=== PATIENT | female | born 1975 | race Caucasian/White ===

== ENCOUNTER 2019-01-14 20:18 | Emergency (ER) | payer OTHER ==
[~2019-01-14] VITALS: Ht 157.5 cm; Wt 104.3 kg
[2019-01-14 20:44] VITALS: BP 151/114
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
[2019-01-14] MEDS ORDERED: HYDR-3165 PO (22:28)
[2019-01-14] MEDS ORDERED: HYDROcodone/APAP 5/325MG 1 TAB TABLET PO ONE (23:00)
[2019-01-14] MEDS ORDERED: NAPROXEN 500 MG TABLET PO ONE (23:00)
== END 2019-01-14 22:38 | disposition home or self-care (01) ==
LOC: ER 20:18
DX: S13.4XXA Sprain of ligaments of cervical spine, initial encounter (principal); M54.6 Pain in thoracic spine; E03.9 Hypothyroidism, unspecified; V40.6XXA Car passenger injured in collision with pedestrian or animal in traffic accident, initial encounter; Y93.89 Activity, other specified; Y92.488 Other paved roadways as the place of occurrence of the external cause; Y99.8 Other external cause status
CPT/HCPCS: 72040; 99284

== ENCOUNTER 2019-01-30 19:55 | Emergency (ER) | payer OTHER ==
[~2019-01-30] VITALS: Ht 157.5 cm; Wt 104.3 kg
[~2019-01-30 19:55] MED LIST: HYDR-3165 PO
[2019-01-30] MEDS ORDERED: IV NORMAL SALINE 1,000ML 1,000 ML IV SCH (20:14)
[2019-01-30] MEDS ORDERED: IV RINGERS SOLUTION,LACTATED 1,000 ML IV SCH (20:14)
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
[2019-01-30] MEDS ORDERED: ONDANSETRON PF 4 MG/2 ML VIAL. IV ONE (20:15)
[2019-01-30] MEDS ORDERED: FAMOTIDINE 20 MG/2 ML VIAL IVP ONE (20:15)
[2019-01-30] MEDS ORDERED: IOHEXOL 300 MG/ML 75 ML VIAL. IV ONE (20:30)
[2019-01-30] MEDS ORDERED: CONTRAST GIVEN MC PRN (20:30)
[2019-01-30] MEDS ORDERED: IOHEXOL 240 MG/ML 50ML VIAL. PO ONE (20:30)
--- NOTE | 2019-01-30 20:56 | EKG ---
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
[2019-01-30 21:12] LABS: BASO # 0.1 x10^3/uL (0.0-0.2); BASO % 1 % (0-3); EOS # 0.3 x10^3/uL (0.0-0.7); EOS % 4 % (0-3); HEMATOCRIT 39.3 % (36.0-47.0); HEMOGLOBIN 13.3 g/dL (12.0-15.5); LYMPH # 1.1 x10^3/uL (1.0-4.8); LYMPH % 15 % (24-48); MEAN CORPUSCULAR HEMOGLOBIN 32 pg (25-35); MEAN CORPUSCULAR HGB CONC 34 g/dL (31-37); MEAN CORPUSCULAR VOLUME 93 fL (79-100); MONO # 0.4 x10^3/uL (0.0-1.1); MONO % 5 % (0-9); NEUT # 5.3 x10^3uL (1.8-7.7); NEUT % 75 % (31-73); PLATELET COUNT 165 x10^3/uL (140-400); RED BLOOD COUNT 4.23 x10^6/uL (3.50-5.40); RED CELL DISTRIBUTION WIDTH 13.9 % (11.5-14.5); WHITE BLOOD COUNT 7.1 x10^3/uL (4.0-11.0)
[2019-01-30 21:28] LABS: ALBUMIN 3.4 g/dL (3.4-5.0); CALCIUM 9.2 mg/dL (8.5-10.1); CREATININE 1.2 mg/dL (0.6-1.0); DIRECT BILIRUBIN 0.1 mg/dL (0.0-0.2); POTASSIUM 3.8 mmol/L (3.5-5.1); TOTAL BILIRUBIN 0.3 mg/dL (0.2-1.0); TOTAL PROTEIN 6.6 g/dL (6.4-8.2)
[2019-01-30] MEDS ORDERED: MORPHINE SULFATE 10 MG/ML SYRINGE. SQ ONE (21:30)
[2019-01-30] MEDS ORDERED: ORPHENADRINE CITRATE 60 MG/2 ML VIAL. IV ONE (22:45)
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
[2019-01-30] MEDS ORDERED: IV RINGERS SOLUTION,LACTATED 1,000 ML IV ONE (23:30)
[2019-01-31] MEDS ORDERED: SODIUM BICARB ADULT 8.4% 50 MEQ/50 ML DISP.SYRIN. IV ONE (00:30)
[2019-01-31] MEDS ORDERED: methylPREDNISolone ACETATE 40 MG/ML VIAL. IM ONE (00:30)
[2019-01-31] MEDS ORDERED: SODIUM BICARBONATE IVF 50 MEQ in IV DEXTROSE 5% 1,000 ML IV ONE (00:30)
[2019-01-31 00:32] LABS: BACTERIA,URINE FEW /HPF (0-FEW); BILIRUBIN,URINE NEG (NEG); CLARITY,URINE CLEAR; COLOR,URINE YELLOW; GLUCOSE,URINE NEG (NEG); NITRITE,URINE NEG (NEG); RBC,URINE OCC /HPF (0-2); SQUAMOUS EPITHELIAL CELL,UR MANY /LPF; UROBILINOGEN,URINE 0.2 mg/dL (0.2 mg/dL); WBC,URINE OCC /HPF (0-4)
[2019-01-31 00:34] LABS: BARBITURATES NEG (NEG); BENZODIAZEPINES NEG (NEG); CANNABINOIDS NEG (NEG); COCAINE NEG (NEG); METHADONE NEG (NEG); OPIATES POS (NEG); PHENCYCLIDINE NEG (NEG)
[2019-01-31 00:35] LABS: AMPHETAMINE/METHAMPHETAMINE NEG (NEG)
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
[2019-01-31 01:20] VITALS: BP 147/102
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
[2019-02-02 15:23] LABS: ALBUM 3.5 g/dL (2.9-4.4); ALPHA 1 0.3 g/dL (0.0-0.4); ALPHA 2 0.7 g/dL (0.4-1.0); BETA 0.9 g/dL (0.7-1.3); GAMMA 0.6 g/dL (0.4-1.8); PROTEIN TOTAL 6.1 g/dL (6.0-8.5); SPEP AG RATIO 1.3 (0.7-1.7)
== END 2019-01-31 01:45 | disposition short-term general hospital (02) ==
LOC: ER 19:55
DX: S32.028A Other fracture of second lumbar vertebra, initial encounter for closed fracture (principal); S32.038A Other fracture of third lumbar vertebra, initial encounter for closed fracture; K92.2 Gastrointestinal hemorrhage, unspecified; R11.2 Nausea with vomiting, unspecified; R79.89 Other specified abnormal findings of blood chemistry; R74.8 Abnormal levels of other serum enzymes; R93.7 Abnormal findings on diagnostic imaging of other parts of musculoskeletal system; E03.9 Hypothyroidism, unspecified; Z90.49 Acquired absence of other specified parts of digestive tract; V40.6XXA Car passenger injured in collision with pedestrian or animal in traffic accident, initial encounter; Y93.89 Activity, other specified; Y92.488 Other paved roadways as the place of occurrence of the external cause; Y99.8 Other external cause status
CPT/HCPCS: 36415; 72131; 74022; 74177; 80048; 80076; 80307; 81001; 82550; 83690; 84165; 84484; 84702; 85025; 85730; 86850; 86900; 86901; 93005; 96361; 96365; 96372; 96375; 96376; 99285; J1030; J2270; J2360; J2405; J3490; J7120; Q9966; Q9967; J7030

== ENCOUNTER → 2019-03-01 | Outpatient (CLI) | payer OTHER ==
[2019-01-31 01:20] VITALS: BP 147/102
[~2019-03-01] MED LIST changes: +IOHEXOL 300 MG/ML 75 ML VIAL. IV ONE
--- NOTE | 2019-03-01 12:00 | RAD ---
Examination: CT chest with IV contrast HISTORY: History of chest pain, back pain COMPARISON: None available TECHNIQUE: Axial CT images of chest were performed with IV contrast. Coronal and sagittal reformats are performed Exposure: One or more of the following individualized dose reduction techniques were utilized for this examination: 1. Automated exposure control 2. Adjustment of the mA and/or kV according to patient size 3. Use of iterative reconstruction technique Findings : The visualized thyroid gland grossly appears unremarkable. The heart size grossly appears unremarkable. Small bibasilar lung consolidation changes likely pneumonia or atelectasis with small bilateral pleural effusions. Large subpectoral and right axillary lymph nodes identified with the largest measuring 5.3 cm in the right axilla The liver demonstrates small hypodensity in the left lobe measuring 1 cm. The spleen, adrenals grossly appears unremarkable. Multiple lytic lesions identified in the visualized thoracolumbar spine with compression changes of C7, T4 T6, T7 vertebral levels. There are multiple lytic lesions identified in the sternum with cortical disruption in the mid stomach. There are lytic lesions identified in the medial bilateral clavicles. There are lytic lesions identified in the right sixth, eighth ribs. Probable old fracture or lytic lesion of the left anterior fifth rib. 2 small nodules identified in the right breast. IMPRESSION: 1. Numerous lytic lesions could be metastasis or myeloma identified with compression fractures of C7 ,T4 T6, T7 vertebrae. There are multiple lytic lesions identified in the sternum the cortical disruption of the mid sternum. MRI of the thoracic spine is recommended to evaluate the spinal canal. 2. Large right axillary and subpectoral lymph nodes likely metastasis. 3. 2 small nodules identified in the right breast. Recommend mammographic evaluation. 4. Small bibasilar lung consolidations with likely atelectasis or pneumonia with small bilateral pleural effusions. 5. 1 cm hypodensity identified in the left lobe of the liver, difficult to characterize. Electronically signed by: Duke Rodrigez MD (03/01/2019 11:57 AM) [id number]
== END | disposition home or self-care (01) ==
LOC: CT 09:24
PROVIDERS: ATTEND Internal Medicine Hematology & Oncology
DX: C50.919 Malignant neoplasm of unspecified site of unspecified female breast (principal); M53.85 Other specified dorsopathies, thoracolumbar region; M53.83 Other specified dorsopathies, cervicothoracic region; N63.10 Unspecified lump in the right breast, unspecified quadrant
CPT/HCPCS: 71260; Q9967

== ENCOUNTER 2019-03-07 20:52 | Emergency (ER) | payer OTHER ==
[~2019-03-07] VITALS: Ht 157.5 cm; Wt 98.7 kg
[~2019-03-07 20:52] MED LIST changes: -IOHEXOL 300 MG/ML 75 ML VIAL. IV ONE
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
[2019-03-07] MEDS ORDERED: methylPREDNISolone SOD SUCC PF 125 MG/2 ML VIAL. IV ONE (21:30)
[2019-03-07] MEDS ORDERED: MORPHINE SULFATE 4 MG/ML DISP.SYRIN. IV ONE (21:30)
[2019-03-07] MEDS: IV RINGERS SOLUTION,LACTATED 1,000 ML IV SCH (21:40)
[2019-03-07 22:02] LABS: BASO # 0.1 x10^3/uL (0.0-0.2); BASO % 2 % (0-3); EOS # 0.2 x10^3/uL (0.0-0.7); EOS % 8 % (0-3); HEMATOCRIT 35.7 % (36.0-47.0); HEMOGLOBIN 12.5 g/dL (12.0-15.5); LYMPH # 0.3 x10^3/uL (1.0-4.8); LYMPH % 13 % (24-48); MEAN CORPUSCULAR HEMOGLOBIN 31 pg (25-35); MEAN CORPUSCULAR HGB CONC 35 g/dL (31-37); MEAN CORPUSCULAR VOLUME 90 fL (79-100); MONO # 0.2 x10^3/uL (0.0-1.1); MONO % 7 % (0-9); NEUT # 1.7 x10^3uL (1.8-7.7); NEUT % 70 % (31-73); PLATELET COUNT 122 x10^3/uL (140-400); RED BLOOD COUNT 3.97 x10^6/uL (3.50-5.40); WHITE BLOOD COUNT 2.5 x10^3/uL (4.0-11.0)
[2019-03-07 22:22] LABS: ALBUMIN 3.4 g/dL (3.4-5.0); CREATININE 1.9 mg/dL (0.6-1.0); DIRECT BILIRUBIN 0.1 mg/dL (0.0-0.2); GFR 28.9; MAGNESIUM 1.5 mg/dL (1.8-2.4); POTASSIUM 3.3 mmol/L (3.5-5.1); TOTAL BILIRUBIN 0.4 mg/dL (0.2-1.0); TOTAL PROTEIN 6.4 g/dL (6.4-8.2)
[2019-03-07 23:09] LABS: SEDIMENTATION RATE 69 (0-25)
--- NOTE | 2019-03-07 23:16 | EKG ---
[address] [address] Test Date: 2019-03-07 Test Time: 22:27:12 Pat Name: RON CONNELLY Department: Room: Gender: F Registered Nurse Post Partum: : 1975 Requested By: CARLOS MARRERO Order Number: [id number] Reading MD: Measurements Intervals [place] Rate: 93 P: 52 AK: 146 QRS: 11 QRSD: 76 T: 5 QT: 336 QTc: 420 Interpretive Statements SINUS RHYTHM T ABNORMALITY IN ANTEROSEPTAL LEADS ABNORMAL ECG RI6.01 No previous ECG available for comparison
[2019-03-07] MEDS ORDERED: IV RINGERS SOLUTION,LACTATED 1,000 ML IV ONE (23:30)
[2019-03-07] MEDS ORDERED: ENOXAPARIN ** NOTE DOSE ** SYRINGE SQ ONE (23:45)
[2019-03-07] MEDS ORDERED: MAGNESIUM SULFATE 2GM 50 ML IV ONE (23:45)
[2019-03-07] MEDS ORDERED: SODIUM BICARB ADULT 8.4% 50 MEQ/50 ML DISP.SYRIN. IV ONE (23:45)
--- NOTE | 2019-03-07 23:47 | RAD ---
AP pelvis radiograph 03/07/2019 CLINICAL HISTORY: Left hip pain. History of metastatic breast cancer. AP digital radiograph of pelvis was obtained. Comparison is made to a CT scan abdomen and pelvis dated 10/16/2018. No pelvic bone fracture is seen. Both hips are intact. Ill-defined lucencies are seen involving the pelvic bones and the proximal femurs which correspond to lytic lesion seen on the patient's recent CT scan and are consistent with metastasis. A moderate amount of stool is seen throughout the visualized portions of the colon. IMPRESSION: Lytic metastasis are seen involving the pelvis and proximal femurs. No fracture or dislocation is seen. Electronically signed by: Darian Guerrier MD (03/07/2019 11:44 PM) [facility]
--- NOTE | 2019-03-07 23:50 | RAD ---
AP portable chest radiograph 03/07/2019 Clinical History: Metastatic breast cancer. An AP erect portable digital radiograph of the chest was obtained. Comparison is made to the patient's CT scan of the chest dated 03/01/2019 The cardiac silhouette is borderline enlarged. The thoracic aorta is mildly tortuous. No acute pulmonary infiltrate is seen. No pleural effusion or pneumothorax is noted. The osseous structures are unchanged. IMPRESSION: No acute pulmonary infiltrate is seen. Electronically signed by: Darian Guerrier MD (03/07/2019 11:47 PM) [facility]
[2019-03-08] MEDS: IV RINGERS SOLUTION,LACTATED 1,000 ML IV SCH (00:23)
[2019-03-08 00:30] LABS: BACTERIA,URINE 0 /HPF (0-FEW); BILIRUBIN,URINE NEG (NEG); CLARITY,URINE CLEAR; COLOR,URINE YELLOW; GLUCOSE,URINE NEG (NEG); NITRITE,URINE NEG (NEG); RBC,URINE 0 /HPF (0-2); UROBILINOGEN,URINE 0.2 mg/dL (0.2 mg/dL); WBC,URINE OCC /HPF (0-4)
[2019-03-08 00:31] LABS: SQUAMOUS EPITHELIAL CELL,UR MOD /LPF
[2019-03-08 00:35] LABS: BARBITURATES NEG (NEG); BENZODIAZEPINES NEG (NEG); CANNABINOIDS NEG (NEG); COCAINE NEG (NEG); METHADONE NEG (NEG); OPIATES POS (NEG); PHENCYCLIDINE NEG (NEG)
[2019-03-08 00:40] LABS: AMPHETAMINE/METHAMPHETAMINE NEG (NEG)
[2019-03-08 00:45] VITALS: BP 119/76
== END 2019-03-08 01:11 | disposition short-term general hospital (02) ==
LOC: ER 20:52
DX: S32.029D Unspecified fracture of second lumbar vertebra, subsequent encounter for fracture with routine healing (principal); S32.039D Unspecified fracture of third lumbar vertebra, subsequent encounter for fracture with routine healing; C50.919 Malignant neoplasm of unspecified site of unspecified female breast; C79.51 Secondary malignant neoplasm of bone; N94.89 Other specified conditions associated with female genital organs and menstrual cycle; R70.0 Elevated erythrocyte sedimentation rate; R79.1 Abnormal coagulation profile; D72.819 Decreased white blood cell count, unspecified; D69.6 Thrombocytopenia, unspecified; E87.1 Hypo-osmolality and hyponatremia; E87.6 Hypokalemia; R97.0 Elevated carcinoembryonic antigen [CEA]; E83.42 Hypomagnesemia; R74.8 Abnormal levels of other serum enzymes; E03.9 Hypothyroidism, unspecified; Z90.49 Acquired absence of other specified parts of digestive tract; V40.9XXD Unspecified car occupant injured in collision with pedestrian or animal in traffic accident, subsequent encounter
CPT/HCPCS: 36415; 71045; 72170; 80048; 80076; 80307; 81001; 82550; 83690; 83735; 83880; 84443; 84484; 85025; 85379; 85610; 85651; 85730; 87040; 93005; 96365; 96372; 96375; 99285; J1650; J2270; J2930; J3475; J7120

== ENCOUNTER → 2019-12-02 | Outpatient (CLI) | payer OTHER ==
[~2019-12-02] MED LIST changes: +IOHEXOL 240 MG/ML 50ML VIAL. ONE; +IOHEXOL 240 MG/ML 50ML VIAL. PO ONE; +IOHEXOL 300 MG/ML 75 ML VIAL. IV ONE
--- NOTE | 2019-12-02 14:32 | RAD ---
EXAM: CT Chest, Abdomen, and Pelvis with IV contrast INDICATION: Reason: BREAST CA / Spl. Instructions: DRINKING 10:56-11:56 / History: TECHNIQUE: Multi-detector row CT images were acquired from the thoracic inlet through the ischial tuberosities with the use of IV contrast. Sagittal and coronal images were acquired from the transaxial data. All CT scans performed at this facility utilize dose optimization techniques as appropriate to the exam, including the following: Automated exposure control and adjustment of the mA and/or KV according to patient size (this includes techniques or standardized protocols for targeted exams where dose is indication/reason for exam). IV CONTRAST: Administered ORAL CONTRAST: Administered COMPARISON: CT chest with IV contrast of 03/01/[address] abdomen and pelvis without IV contrast of 01/30/2019. FINDINGS: CHEST: CARDIOVASCULAR: Unremarkable MEDIASTINUM & DEANA: No adenopathy or masses. LUNGS: Stable reticular nodular density in the medial superior right lung apex. No pulmonary infiltrate, nodule, or other focal abnormality. PLEURAL SPACE: No pleural effusions or pneumothorax. OSSEOUS & SOFT TISSUE: Extensive osteolytic lesions consistent with osseous metastasis are present with interval occurrence of healing pathologic fractures in the proximal sternal body and at T4, T6, and T7 with associated deformity. [place] of osteolysis in the bones has decreased markedly in the interval. Right axillary lymph nodes remain asymmetrically enlarged and show calcifications but have not changed in size in the interval. ABDOMEN/PELVIS: LIVER: Unremarkable BILIARY SYSTEM: Gallbladder surgically absent. Bile ducts are not dilated. PANCREAS: Unremarkable SPLEEN: Unremarkable ADRENALS: Unremarkable KIDNEYS & URETERS: Unremarkable BLADDER: Unremarkable REPRODUCTIVE ORGANS: Unremarkable GASTROINTESTINAL: Stool-filled large bowel. The Stomach, small bowel, and colon are otherwise unremarkable. The appendix is normal. MESENTERY/PERITONEUM/RETROPERITONEUM: Small amount of pelvic free fluid. No organized fluid collection, or free air VASCULAR: Unremarkable LYMPH NODES: No adenopathy OSSEOUS & SOFT TISSUES: Interval vertebroplasty at L3 with slight extravasation of vertebroplasty cement into the L3-L4 disc space. Mild anterior loss of height at L2, consistent with subtle pathologic wedge compression fracture. Numerous osteolytic lesions throughout the lumbar spine show interval development of sclerosis, compatible with a positive treatment response. There is 1 osteolytic lesion in the left iliac wing that shows interval cortical destruction with soft tissue extension protruding against the left gluteus minimus muscle, best illustrated on axial image 89 of series 5 this exam compared with image 60 of series 2 on the previous exam). Patient has a new left dynamic hip screw. IMPRESSION: Findings suggest overall positive treatment response with decrease in burden of extensive osteolytic metastatic disease but with one lesion in the left iliac wing showing a slightly more conspicuous soft tissue component. Attention on follow-up recommended. Otherwise stable posttreatment changes of the medial right lung apex and in the right axilla with no evidence of disease progression. Electronically signed by: Linda Roland MD (12/02/2019 2:29 PM) [id number]
== END | disposition home or self-care (01) ==
LOC: CT 10:45
PROVIDERS: ATTEND Internal Medicine Hematology & Oncology
DX: C50.919 Malignant neoplasm of unspecified site of unspecified female breast (principal); M89.58 Osteolysis, other site
CPT/HCPCS: 71260; 74177; Q9966; Q9967

== ENCOUNTER 2020-05-20 07:59 | Emergency (ER) | payer OTHER ==
[~2020-05-20] VITALS: Ht 157.5 cm; Wt 84.1 kg
[~2020-05-20 07:59] MED LIST changes: -IOHEXOL 240 MG/ML 50ML VIAL. ONE; -IOHEXOL 240 MG/ML 50ML VIAL. PO ONE; -IOHEXOL 300 MG/ML 75 ML VIAL. IV ONE
[2020-05-20] MEDS ORDERED: IV NORMAL SALINE 1,000ML 1,000 ML IV ONE (08:30)
[2020-05-20] MEDS ORDERED: ONDANSETRON PF 4 MG/2 ML VIAL. IVP ONE (08:30)
--- NOTE | 2020-05-20 08:42 | RAD ---
CHEST AP ONLY INDICATION: SOA. History breast cancer. COMPARISON STUDY: CT chest abdomen and pelvis 12/02/2019. FINDINGS: Lungs: Low lung volume. No pulmonary mass or consolidation. The tracheobronchial tree and hilar structures are normal. Pleura: No pleural effusion or pneumothorax. Heart and Mediastinum: The cardiomediastinal silhouette is normal. The great vessels of the thorax are normal. Bones and Soft Tissues: Osseous metastatic lesions are again seen. IMPRESSION: 1. No focal airspace disease. 2. Osseous metastases are again seen. Electronically signed by: Paulino Grewal MD (05/20/2020 8:39 AM) [id number]
[2020-05-20] MEDS ORDERED: MORPHINE SULFATE 4 MG/ML DISP.SYRIN. IV ONE (08:45)
--- NOTE | 2020-05-20 08:47 | PHYS DOC ---
Past History Past Medical History: Anxiety, Cancer, Depression, Hypothyroid Additional Past Medical Histor: breast cancer, ca-spine Past Surgical History: Cholecystectomy, Other Additional Past Surgical Histo: kyphoplasty-l3, radiation Alcohol Use: None Drug Use: None General Adult EDM: Chief Complaint: MULTIPLE COMPLAINTS HPI: HPI: Patient is a 44-year-old female with a history of stage IV breast cancer, under chemo therapy treatment with some investigation drugs presented to ER for nausea vomiting and feeling weak. Patient says she vomited blood last night. Patient denies taking any blood thinner. Patient said when she vomited blood last night she has some abdominal cramping. Patient also complained of trouble breathing. She denies any cough or fever. Patient stated patient is acting more confused Review of Systems: Review of Systems: Constitutional: Denies fever or chills Eyes: Denies change in visual acuity HENT: Denies nasal congestion or sore throat Respiratory: Positive for trouble breathing, no cough. Cardiovascular: Denies chest pain or edema GI: Positive for nausea vomiting abdominal pain, no diarrhea. : Denies dysuria Musculoskeletal: Denies back pain or joint pain Integument: Denies rash Neurologic: Denies headache, focal weakness or sensory changes Endocrine: Denies polyuria or polydipsia Lymphatic: Denies swollen glands Psychiatric: Denies depression or anxiety Current Medications: Current Meds: Current Medications Medications (Trade) Dose Ordered Sig/Alfredo Start Time Stop Time Status Last Admin Dose Admin Morphine Sulfate (Morphine 4mg Syringe) 4 mg 1X ONCE 05/20/20 08:45 05/20/20 08:46 UNV Ondansetron HCl (Zofran) 4 mg 1X ONCE 05/20/20 08:30 05/20/20 08:31 DC Sodium Chloride 1,000 ml @ 1,000 mls/hr 1X ONCE 05/20/20 08:30 05/20/20 09:29 Allergies: Allergies: Allergies Coded Allergies Type Severity Reaction Last Updated Verified No Known Drug Allergies 03/01/19 No Physical Exam: PE: Constitutional: Well developed, well nourished, no acute distress, non-toxic ap pearance. [] HENT: Normocephalic, atraumatic, bilateral external ears normal, oropharynx dry, no oral exudates, nose normal. [] Eyes: PERRLA, EOMI, conjunctiva normal, no discharge. [] Neck: Normal range of motion, no tenderness, supple, no stridor. [] Cardiovascular:Heart rate regular rhythm, no murmur [] Lungs & Thorax: Bilateral breath sounds clear to auscultation [] Abdomen: Bowel sounds normal, soft, right upper quadrant tenderness to palpation, hepatomegaly, no masses, no pulsatile masses. [] Skin: Warm, dry, no erythema, no rash. [] Back: No tenderness, no CVA tenderness. [] Extremities: No tenderness, no cyanosis, no clubbing, ROM intact, no edema. [] Neurologic: Alert and oriented X 3, normal motor function, normal sensory function, no focal deficits noted. [] Psychologic: Affect normal, judgement normal, mood normal. [] Current Patient Data: Labs: Laboratory Tests Test 05/20/20 08:11 05/20/20 08:36 Sodium Level 127 mmol/L Potassium Level 4.6 mmol/L Chloride Level 92 mmol/L Carbon Dioxide Level 14 mmol/L Anion Gap 21 Blood Urea Nitrogen 23 mg/dL Creatinine 2.1 mg/dL Estimated GFR (Cockcroft-Gault) 25.6 BUN/Creatinine Ratio 11 Glucose Level 121 mg/dL Calcium Level 8.3 mg/dL Magnesium Level 2.3 mg/dL Total Bilirubin 7.7 mg/dL Aspartate Amino Transf (AST/SGOT) 375 U/L Alanine Aminotransferase (ALT/SGPT) 57 U/L Alkaline Phosphatase 577 U/L Total Protein 5.6 g/dL Albumin 2.4 g/dL Albumin/Globulin Ratio 0.8 White Blood Count 10.2 x10^3/uL Red Blood Count 3.38 x10^6/uL Hemoglobin 11.6 g/dL Hematocrit 37.5 % Mean Corpuscular Volume 111 fL Mean Corpuscular Hemoglobin 35 pg Mean Corpuscular Hemoglobin Concent 31 g/dL Red Cell Distribution Width 18.8 % Platelet Count 65 x10^3/uL Neutrophils (%) (Auto) % Lymphocytes (%) (Auto) % Monocytes (%) (Auto) % Eosinophils (%) (Auto) % Basophils (%) (Auto) % Neutrophils # (Auto) x10^3uL Lymphocytes # (Auto) x10^3/uL Monocytes # (Auto) x10^3/uL Eosinophils # (Auto) x10^3/uL Basophils # (Auto) x10^3/uL Segmented Neutrophils % 62 % Band Neutrophils % 5 % Lymphocytes % 21 % Monocytes % 10 % Myelocytes % 2 % Nucleated Red Blood Cells 5 Platelet Estimate Decreased Polychromasia Slight Hypochromasia Macrocytosis Slight Prothrombin Time 17.7 SEC Prothromb Time International Ratio 1.7 Activated Partial Thromboplast Time 33 SEC Lactic Acid Level 4.8 mmol/L Ammonia 17 mcmol/L Lipase 61 U/L Current Medications Medications (Trade) Dose Ordered Sig/Alfredo Route PRN Reason Start Time Stop Time Status Last Admin Dose Admin Ondansetron HCl (Zofran) 4 mg 1X ONCE IVP 05/20/20 08:30 05/20/20 08:31 DC 05/20/20 08:43 Sodium Chloride 1,000 ml @ 1,000 mls/hr 1X ONCE IV 05/20/20 08:30 05/20/20 09:29 DC 05/20/20 08:43 Morphine Sulfate (Morphine 4mg Syringe) 4 mg 1X ONCE IV 05/20/20 08:45 05/20/20 08:51 DC 05/20/20 08:43 EKG: EKG: EKG was done at a 17, heart rate of 96 bpm, sinus rhythm, no ST segment elevation. Radiology/Procedures: Radiology/Procedures: [][address] [address] IMAGING REPORT Signed PATIENT: RON CONNELLY ACCOUNT: [id number] : 1975 LOCATION: ER AGE: 44 SEX: F EXAM STATUS: REG ER ORD. PHYSICIAN: RAMBO TAN DO REASON: SOA PROCEDURE: CHEST AP ONLY CHEST AP ONLY INDICATION: SOA. History breast cancer. COMPARISON STUDY: CT chest abdomen and pelvis 12/02/2019. FINDINGS: Lungs: Low lung volume. No pulmonary mass or consolidation. The tracheobronchial tree and hilar structures are normal. Pleura: No pleural effusion or pneumothorax. Heart and Mediastinum: The cardiomediastinal silhouette is normal. The great vessels of the thorax are normal. Bones and Soft Tissues: Osseous metastatic lesions are again seen. IMPRESSION: 1. No focal airspace disease. 2. Osseous metastases are again seen. Electronically signed by: Charbel Grewal MD (05/20/2020 8:39 AM) [id number] DICTATED AND SIGNED BY: CHARBEL GREWAL MD DATE: 05/20/20 0839 CC: RAMBO TAN DO; JOEL MAKI ~MTH0 0 Heart Score: Risk Factors: Risk Factors: DM, Current or recent (<one month) smoker, HTN, HLP, family history of CAD, obesity. Risk Scores: Score 0 - 3: 2.5% MACE over next 6 weeks - Discharge Home Score 4 - 6: 20.3% MACE over next 6 weeks - Admit for Clinical Observation Score 7 - 10: 72.7% MACE over next 6 weeks - Early Invasive Strategies Course & Med Decision Making: Course & Med Decision Making Pertinent Labs and Imaging studies reviewed. (See chart for details) Patient is a 44-year-old female with stage IV breast cancer presented with nausea vomiting, generalized weakness. Patient is dehydrated, her liver function tests are abnormal. Patient was given IV fluid, nausea medication, pain medication in the ER. Patient will need to be transferred to [facility] with oncologist this for further evaluation and treatment. Dragon Disclaimer: Dragon Disclaimer: This electronic medical record was generated, in whole or in part, using a voice recognition dictation system. Departure Departure: Impression: Primary Impression: Liver failure Additional Impressions: Breast cancer Dehydration Metabolic acidosis Disposition: 02 DC/TRF OTHER SHORT TERM HOS (Transfered to [facility], DR. OSBORNE) Condition: IMPROVED Referrals: JOEL MAKI (PCP) RAMBO TAN DO May 20, 2020 08:47
[2020-05-20 09:04] LABS: HEMATOCRIT 37.5 % (36.0-47.0); HEMOGLOBIN 11.6 g/dL (12.0-15.5); MEAN CORPUSCULAR HEMOGLOBIN 35 pg (25-35); MEAN CORPUSCULAR HGB CONC 31 g/dL (31-37); MEAN CORPUSCULAR VOLUME 111 fL (79-100); PLATELET COUNT 65 x10^3/uL (140-400); RED BLOOD COUNT 3.38 x10^6/uL (3.50-5.40); RED CELL DISTRIBUTION WIDTH 18.8 % (11.5-14.5); WHITE BLOOD COUNT 10.2 x10^3/uL (4.0-11.0)
[2020-05-20 09:13] LABS: CALCIUM 8.3 mg/dL (8.5-10.1); CREATININE 2.1 mg/dL (0.6-1.0); GFR 25.6; POTASSIUM 4.6 mmol/L (3.5-5.1)
[2020-05-20 09:19] VITALS: BP 113/82
[2020-05-20 09:27] LABS: ALBUMIN 2.4 g/dL (3.4-5.0); ALBUMIN/GLOBULIN RATIO 0.8 (1.0-1.7); MAGNESIUM 2.3 mg/dL (1.8-2.4); TOTAL BILIRUBIN 7.7 mg/dL (0.2-1.0)
[2020-05-20 09:29] LABS: TOTAL PROTEIN 5.6 g/dL (6.4-8.2)
[2020-05-20 10:40] LABS: % BANDS 5 % (0-9); % LYMPHS 21 % (24-48); % MONOS 10 % (0-10); % MYELOS 2 % (0-0); % SEGS 62 % (35-66); NUCLEATED RBC 5
[2020-05-20 10:42] LABS: PLT ESTIMATE DECREASED (ADEQUATE)
[2020-05-20 10:43] LABS: POLYCHROMASIA SLIGHT
--- NOTE | 2020-05-20 13:44 | EKG ---
[facility] ED [id number] [address] [place] [id number] Test Date: 2020-05-20 Test Time: 08:17:06 Pat Name: RON CONNELLY Department: Room: Gender: F Buyer Agent: : 1975 Requested By: RAMBO TAN Order Number: [id number] Reading MD: Measurements Intervals [place] Rate: 96 P: 57 [place]: 136 QRS: 34 QRSD: 74 T: 197 QT: 352 QTc: 451 Interpretive Statements SINUS RHYTHM T ABNORMALITY IN ANTERIOR LEADS LATERAL LEADS INFEROLATERAL LEADS ABNORMAL ECG RI6.02 No previous ECG available for comparison
== END 2020-05-20 12:08 | disposition short-term general hospital (02) ==
LOC: ER 07:59
DX: K72.90 Hepatic failure, unspecified without coma (principal); E86.0 Dehydration; E87.2 Acidosis; C50.919 Malignant neoplasm of unspecified site of unspecified female breast; R10.11 Right upper quadrant pain; E03.9 Hypothyroidism, unspecified; F41.9 Anxiety disorder, unspecified; Z20.828 Contact with and (suspected) exposure to other viral communicable diseases; Z90.49 Acquired absence of other specified parts of digestive tract
CPT/HCPCS: 36415; 71045; 80053; 82140; 83605; 83690; 83735; 85007; 85025; 85610; 85730; 87040; 93005; 96361; 96374; 96375; 99285; C9803; J2270; J2405; J7030; U0003